=== PATIENT | female | born 1985 | race Hispanic/Latino ===

== ENCOUNTER 2022-08-25 14:58 | Emergency (ER) | payer OTHER ==
[~2022-08-25] VITALS: Ht 152.4 cm; Wt 68.9 kg
[2022-08-25] MEDS ORDERED: METHOCARBAMOL750 MG PO (17:40)
[2022-08-25] MEDS ORDERED: ANAPROX DS550 MG PO (17:40)
== END 2022-08-25 17:44 | disposition home or self-care (01) ==
LOC: ER 16:40
DX: F07.81 Postconcussional syndrome (principal); M54.50 Low back pain, unspecified; M25.561 Pain in right knee; V43.52XD Car driver injured in collision with other type car in traffic accident, subsequent encounter
CPT/HCPCS: 72110; 81025; 99283